=== PATIENT | female | born 1945 | race Caucasian/White ===

== ENCOUNTER 2022-08-16 06:18 | Emergency (ER) | payer MEDICARE, MEDICAID ==
[~2022-08-16] VITALS: Ht 154.9 cm; Wt 60.0 kg
[2022-08-16] MEDS ORDERED: ACETAMINOPHEN 325MG TABLET PO STA (06:38)
[2022-08-16 09:02] LABS: BASOPHILS % 0.8 % (0.0-2.0); EOSINOPHILS % 2.3 % (0.0-5.0); HEMATOCRIT. 43.2 % (36.0-48.0); HEMOGLOBIN. 14.2 g/dL (12.0-16.0); LYMPHOCYTES % 21.5 % (20.0-50.0); MEAN CORPUSCULAR HEMOGLOBIN 28.4 pg (28.0-32.0); MEAN CORPUSCULAR VOLUME 86.2 fL (81.0-99.0); MEAN PLATELET VOLUME 9.6 fl (7.4-10.4); MONOCYTES % 8.4 % (2.0-8.0); PLATELET 263 x1000/uL (130-400); RED BLOOD CELL COUNT 5.01 mill/uL (4.2-5.4); RED CELL DISTRIBUTION WIDTH 17.4 % (11.6-14.6)
[2022-08-16 09:09] LABS: INR 1.1; PROTHROMBIN TIME 12.2 sec (9.6-11.0)
[2022-08-16 09:16] LABS: CHLORIDE 110 mEq/L (98-107)
[2022-08-16] MEDS ORDERED: IOHEXOL-350 100 ML BOTTLE ONE (10:27)
[2022-08-16 12:36] LABS: CLARITY URINE CLOUDY (CLEAR); COLOR URINE YELLOW (YELLOW); KETONES URINE NEGATIVE (NEGATIVE); LEUKOCYTE ESTERASE URINE TRACE (NEGATIVE); NITRITE URINE POSITIVE (NEGATIVE); OCCULT BLOOD URINE NEGATIVE (NEGATIVE); PH URINE 5.5 (4.5-8.0); PROTEIN URINE NEGATIVE (NEGATIVE); SPECIFIC GRAVITY URINE 1.051 (1.005-1.030); UROBILINOGEN URINE 0.2 E.U./dL (0.2-1.0)
[2022-08-16 12:41] VITALS: BP 129/77
[2022-08-16] MEDS ORDERED: CEPH500C2 MT (13:07)
[2022-08-16] MEDS ORDERED: CEFTRIAXONE 1 G PREMIX 50 ML IV ONE (13:15)
== END 2022-08-16 17:00 | disposition home or self-care (01) ==
LOC: ER 06:40
DX: N39.0 Urinary tract infection, site not specified (principal); K80.20 Calculus of gallbladder without cholecystitis without obstruction; N20.0 Calculus of kidney; I48.91 Unspecified atrial fibrillation; F31.9 Bipolar disorder, unspecified; I10 Essential (primary) hypertension; F20.9 Schizophrenia, unspecified
CPT/HCPCS: 36415; 71045; 71275; 74174; 80053; 81003; 83880; 84484; 85025; 85610; 93005; 96365; 99284; J0696; Q9967; 99285